=== PATIENT | female | born 1985 | race Two or more races ===

== ENCOUNTER 2017-12-13 15:01 | Emergency (ER) | payer MEDICAID, OTHER ==
[~2017-12-13] VITALS: Ht 172.7 cm; Wt 144.7 kg
[2017-12-13 15:10] VITALS: BP 152/68
[2017-12-13] MEDS ORDERED: KETOROLAC TROMETH 60MG/2ML VIAL IM ONE (15:15)
== END 2017-12-13 15:43 | disposition home or self-care (01) ==
LOC: ER 15:01
DX: K02.9 Dental caries, unspecified (principal)
CPT/HCPCS: 96372; 99283; J1885

== ENCOUNTER 2018-03-22 08:13 | Emergency (ER) | payer OTHER ==
[~2018-03-22] VITALS: Ht 172.7 cm; Wt 144.7 kg
[2018-03-22 09:03] VITALS: BP 137/82
== END 2018-03-22 10:12 | disposition home or self-care (01) ==
LOC: ER 08:16
DX: K08.89 Other specified disorders of teeth and supporting structures (principal)